=== PATIENT | male | born 1940 | race Caucasian/White ===

== ENCOUNTER 2017-01-31 11:43 | Emergency (ER) | payer MEDICARE, OTHER ==
[2017-01-31 11:44] VITALS: BMI 22.6
[2017-01-31 12:02] VITALS: RESP 18; TEMP 97.8; O2SAT 98
[2017-01-31] MEDS ORDERED: Tobramycin 0.3% OPH OINT OU STA (12:15)
--- NOTE | 2017-01-31 12:21 | ED PDOC ---
Arrival/HPI <Tal Solomon - Last Filed: 01/31/17 13:18> <Darius Toro - Last Filed: 01/31/17 15:15> - General Chief Complaint: Eye Problem Time Seen by Provider: 01/31/17 11:57 - History of Present Illness Narrative History of Present Illness (Text): CC: right eye pain/discharge This patient is a 76yo M w/ a history of Colon Resection and colostomy placement , DM, Urinary incontinence, HLD, and GERD who is presenting to the ED w/ a 2d history of right eye discharge/pain and swelling. The patient states he feels like he has sand in his eyes, with white discharge coming out of his right eye and cannot stop itching it. He states his vision is 100% the same, and has no trouble moving his eyes. He denies fevers/chills, BARRERA, CP, SOB, abdominal pain, N /V/D, or lower extremity pain/swelling. The patient states he is incontinent of urine, which is his baseline, wears a diaper, and feels as though it is painful when he urinates. Of note, the patient performs self colostomy care and most likely did not clean his hands well enough 2 days ago when he was changing and touches his face/eyes. (Tal Solomon) Past Medical History - Provider Review Nursing Documentation Reviewed: Yes - Travel History Have you recently traveled outside [place] w/in the past 3 mons?: No - Infectious Disease Hx of Infectious Diseases: None - Tetanus Immunization Tetanus Immunization: Unknown - Cardiac Hx Hypertension: Yes - Pulmonary Hx Respiratory Disorders: No - Endocrine/Metabolic Hx Diabetes Mellitus Type 2: Yes - Hematological/Oncological Hx Cancer: Yes (colon) - Integumentary Hx Dermatological Disorder: No - Musculoskeletal/Rheumatological Hx Musculoskeletal Disorders: No - Gastrointestinal Hx Bowel Surgery: Yes Hx Colostomy: Yes - Genitourinary/Gynecological Hx Genitourinary Disorders: No - Psychiatric Hx Psychophysiologic Disorder: No Hx Substance Use: No - Past Surgical History Past Surgical History: No Previous - Anesthesia Hx Anesthesia Reactions: No Hx Malignant Hyperthermia: No - Suicidal Assessment Feels Threatened In Home Enviroment: No <Tal Solomon - Last Filed: 01/31/17 13:18> Family/Social History - Physician Review Nursing Documentation Reviewed: Yes Family/Social History: No Known Family HX Smoking Status: Unknown If Ever Smoked Hx Alcohol Use: No Hx Substance Use: No Hx Substance Use Treatment: No <Tal Solomon - Last Filed: 01/31/17 13:18> Allergies/Home Meds <Tal Solomon - Last Filed: 01/31/17 13:18> <ToroDarius tavares Jai - Last Filed: 01/31/17 15:15> Allergies/Adverse Reactions: Allergies No Known Allergies Allergy (Verified 02/25/14 14:43) Home Medications: Home Meds Medication Instructions Recorded Confirmed Clopidogrel [Plavix] 75 mg PO DAILY 06/22/14 12/22/14 Glimepiride [amaRYL] 2 mg PO PRN 06/22/14 12/22/14 Mirabegron [Myrbetriq] 50 mg PO DAILY 06/22/14 12/22/14 Ramipril [Altace] 10 mg PO DAILY 06/22/14 12/22/14 Simvastatin 10 mg PO DAILY 06/22/14 12/22/14 Tolterodine Tartrate [Detrol LA] 4 mg PO DAILY 06/22/14 12/22/14 Review of Systems - Review of Systems Constitutional: absent: Fatigue, Weight Change Eyes: Other (discharge from right eye white/sand like). absent: Vision Changes , Photophobia, Eye Pain ENT: absent: Hearing Changes, Tinnitus Respiratory: absent: SOB, Cough Cardiovascular: absent: Chest Pain, Palpitations Gastrointestinal: absent: Abdominal Pain, Stool Changes Genitourinary Male: absent: Dysuria, Frequency Musculoskeletal: absent: Arthralgias, Back Pain Skin: absent: Rash, Pruritis, Skin Lesions Neurological: absent: Headache, Dizziness Endocrine: absent: Diaphoresis, Polyuria Hemo/Lymphatic: absent: Adenopathy, Easy Bleeding Psychiatric: absent: Anxiety <Tal Solomon - Last Filed: 01/31/17 13:18> Physical Exam Vital Signs Reviewed: Yes Temperature: Afebrile Blood Pressure: Normal Pulse: Regular Respiratory Rate: Normal Appearance: Positive for: Well-Appearing Pain Distress: None Mental Status: Positive for: Alert and Oriented X 3 - Systems Exam Head: Present: Swelling (right eye below orbit, non painful to palpation, eye is red and there is pus/sand like material coming from eye. there is no entrapment, pain on eye movement, or vision loss) Pupils: Present: PERRL Extroacular Muscles: Present: EOMI. No: Entrapment Conjunctiva: Present: Injected. No: Icteric Mouth: Present: Moist Mucous Membranes Pharnyx: No: ERYTHEMA, EXUDATE Neck: Present: Normal Range of Motion. No: Meningeal Signs Respiratory/Chest: Present: Clear to Auscultation, Good Air Exchange. No: Respiratory Distress, Accessory Muscle Use Cardiovascular: Present: Regular Rate and Rhythm. No: Murmurs Abdomen: Present: Normal Bowel Sounds. No: Tenderness, Distention Back: Present: Normal Inspection. No: CVA Tenderness Upper Extremity: Present: Normal Inspection. No: Cyanosis, Edema Lower Extremity: Present: Normal Inspection. No: Edema, CALF TENDERNESS Neurological: Present: GCS=15, CN II-XII Intact, Speech Normal Skin: Present: Warm Psychiatric: Present: Alert, Oriented x 3, Normal Insight <Tal Solomon - Last Filed: 01/31/17 13:18> Vital Signs Temp Pulse Resp BP Pulse Ox 01/31/17 13:20 75 18 130/71 98 01/31/17 12:02 97.8 F 79 18 132/76 98 01/31/17 11:59 97.6 F 70 16 178/75 H 98 Medical Decision Making <Tal Solomon - Last Filed: 01/31/17 13:18> <Darius Toro - Last Filed: 01/31/17 15:15> ED Course and Treatment: Bacterial Conjunctivitis vs Viral Conjunctivitis vs UTI Patient is afebrile, resting comfortably, has no systemic symptoms will give tobramycin eye drops and do UA Stressed importance of proper sterile care when changing colostomy. Dispo and Reassess 01/31/17 12:35 UA positive; will give patient 1g of Ceftriaxone 01/31/17 13:02 no WBC, no bands Anemia 12.2, which is higher than last Hgb of 11.2 pending CMP 01/31/17 13:18 CMP is WNL the patient is stable for d/c as per Dr. Toro The patient will get Tobramycin eye drops for 10days, as well as Vantin for 10d 200mg BID (Tal Solomon) 01/31/17 15:13 Examined the patient myself without septal cellulitis likely very superficial preseptal cellulitis versus blepharitis patient was given by mouth antibiotics as well as topical antibiotics and told to return if worsening symptoms. Nontoxic appearing (Darius Toro) - Lab Interpretations Lab Results: 01/31/17 12:45 01/31/17 12:45 Lab Results 01/31/17 12:45: Sodium 140, Potassium 4.1, Chloride 105, Carbon Dioxide 27, Anion Gap 13, BUN 21, Creatinine 0.8, Est GFR ( Amer) > 60, Est GFR (Non- Af Amer) > 60, Random Glucose 112 H, Calcium 9.2, Total Bilirubin 0.6, AST 23, ALT 33, Alkaline Phosphatase 87, Total Protein 7.0, Albumin 4.2, Globulin 2.9, Albumin/Globulin Ratio 1.5 01/31/17 12:45: WBC 7.5 D, RBC 3.88, Hgb 12.2 L, Hct 36.7 L, MCV 94.6, MCH 31.4 , MCHC 33.2, RDW 13.3, Plt Count 159, MPV 11.7 H, Gran % 73.3 H, Lymph % (Auto) 19.0 L, [place] % (Auto) 6.5 H, Eos % (Auto) 1.1 L, Baso % (Auto) 0.1, Gran # 5.50 , Lymph # 1.4, [place] # 0.5, Eos # 0.1, Baso # 0.01 01/31/17 12:34: Urine Color Yellow, Urine Appearance Clear, Urine pH 6.5, Ur Specific [place] <= 1.005, Urine Protein Trace H, Urine Glucose (UA) Negative, Urine Ketones Negative, Urine Blood Trace-intact H, Urine Nitrate Positive H, Urine Bilirubin Negative, Urine Urobilinogen 0.2, Ur Leukocyte Esterase Moderate H, Urine RBC 2 - 5, Urine WBC 5 - 10, Ur Epithelial Cells 4 - 5, Amorphous Sediment Few, Urine Bacteria Many - Medication Orders Current Medication Orders: Discontinued Medications Ceftriaxone Sodium (Rocephin 1 Gram Ivpb) 1 gm in 100 mls @ 200 mls/hr IVPB STAT STA PRN Reason: Protocol Stop: 01/31/17 13:13 Last Admin: 01/31/17 13:41 Dose: 200 mls/hr eMAR Start Stop Document 01/31/17 13:41 OCS (Rec: 01/31/17 13:41 OCS [facility] [id number]) Intravenous Solution Start Date 01/31/17 Start Time 13:41 Tobramycin Sulfate (Tobrex 0.3% Ophth Oint) 1 appl OU ONCE STA Stop: 01/31/17 12:16 Last Admin: 01/31/17 12:36 Dose: 0.3 % - PA / 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 <Darius Toro - Last Filed: 01/31/17 15:15> Disposition/Present on Arrival - Present on Arrival Any Indicators Present on Arrival: No History of DVT/PE: No History of Uncontrolled Diabetes: No Urinary Catheter: No History of Decub. Ulcer: No History Surgical Site Infection Following: None - Disposition Have Diagnosis and Disposition been Completed?: Yes Disposition Time: 13:22 Patient Plan: Discharge <Tal Solomon - Last Filed: 01/31/17 13:18> <Darius Toro - Last Filed: 01/31/17 15:15> - Disposition Diagnosis: Bacterial conjunctivitis, Urinary tract infection Patient Problems: Current Active Problems Problem Status Onset Bacterial conjunctivitis Acute Urinary tract infection Acute Condition: FAIR Discharge Instructions (ExitCare): Urinary Tract Infection in Men (ED), Conjunctivitis (ED) Additional Instructions: Please make sure to take your Tobramycin eye drops, every 6 hours, for 10 days as well as Vantin, BID for 10 days You were given 1g of Ceftriaxone for a UTI here in the ED which should resolve your symptoms If you develop any trouble with your vision, cannot move your eyes, or cannot open them, please come back to the ED as this can be more serious issue Please feel better. Prescriptions: Cefpodoxime [Vantin] 200 mg PO BID 10 Days #20 tab Dexamethasone/Tobramycin [Tobradex Opht Susp] 25 drop OD Q6H 10 Days #1 bottle Forms: [employer] [place] ([place])
[2017-01-31 12:39] LABS: PH,URINE 6.5 (4.7-8.0); URINE BILIRUBIN NEGATIVE (NEGATIVE); URINE BLOOD TRACE-INTACT (NEGATIVE); URINE GLUCOSE (UA) NEGATIVE (NEGATIVE); URINE KETONE NEGATIVE (NEGATIVE); URINE LEUKOCYTE ESTERASE MODERATE Leu/uL (NEGATIVE); URINE PROTEIN TRACE mg/dL (<30 mg/dL); URINE UROBILINOGEN 0.2 E.U./dL (<1 E.U./dL)
[2017-01-31 12:42] LABS: URINE APPEARANCE CLEAR (CLEAR); URINE COLOR YELLOW (YELLOW)
[2017-01-31] MEDS ORDERED: cefTRIAXone 1 gm 1 GM/100 ML BAG IVPB STA (12:44)
[2017-01-31 12:50] LABS: URINE AMORPHOUS SEDIMENT FEW; URINE BACTERIA MANY (NEG)
[2017-01-31 13:00] LABS: BASO # 0.01 K/mm3 (0.0-2.0); BASO % 0.1 % (0.0-3.0); EOS # 0.1 (0.0-0.7); EOS % 1.1 % (1.5-5.0); GRAN # 5.5 (1.4-6.5); GRAN % 73.3 % (50.0-68.0); HEMATOCRIT 36.7 % (42.0-52.0); LYMPH # 1.4 (1.2-3.4); MEAN CELL VOLUME 94.6 fl (80.0-105.0); MEAN CORPUSCULAR HEMOGLOBIN 31.4 pg (25.0-35.0); MEAN CORPUSCULAR HGB CONC 33.2 g/dl (31.0-37.0); MEAN PLATELET VOLUME 11.7 fl (7.0-11.0); MONO # 0.5 (0.1-0.6); MONO % 6.5 % (1.0-6.0); RED CELL DISTRIBUTION WIDTH 13.3 % (11.5-14.5); WHITE BLOOD COUNT 7.5 10^3/ul (4.5-11.0)
[2017-01-31 13:12] LABS: ALB/GLOB RATIO 1.5 (1.1-1.8); ALKALINE PHOSPHATASE 87 U/L (38-126); ALT/SGPT 33 U/L (7-56); AST/SGOT 23 U/L (17-59); BILIRUBIN,TOTAL 0.6 mg/dL (0.2-1.3); BLOOD UREA NITROGEN 21 mg/dL (7-21); CALCIUM 9.2 mg/dL (8.4-10.5); CARBON DIOXIDE 27 mmol/L (21-33); CHLORIDE 105 mmol/L (98-107); GFR AFRICAN-AMERICAN > 60; GLUCOSE,RANDOM 112 mg/dL (70-110); POTASSIUM 4.1 mmol/L (3.6-5.0); SODIUM 140 mmol/L (132-148)
[2017-01-31 13:58] VITALS: BP 130/71; PULSE 75
== END 2017-01-31 14:30 | disposition home or self-care (01) ==
LOC: ED 11:43
DX: N39.0 Urinary tract infection, site not specified (principal); H10.89 Other conjunctivitis; E11.9 Type 2 diabetes mellitus without complications; I10 Essential (primary) hypertension; E78.5 Hyperlipidemia, unspecified; Z93.3 Colostomy status
CPT/HCPCS: 80053; 81001; 85025; 87040; 87086; 96374; 99283; J0696

== ENCOUNTER 2018-07-09 09:53 | Outpatient (CLI) | payer MEDICARE, OTHER | END 2018-07-09 09:54 | disposition home or self-care (01) | LOC: LAB 09:53 ==

== ENCOUNTER 2018-08-03 08:27 | Outpatient (CLI) | payer MEDICARE, OTHER | END 2018-08-03 08:28 | disposition home or self-care (01) | LOC: CARDIO 08:27 | DX: Z01.818 Encounter for other preprocedural examination (principal); E11.9 Type 2 diabetes mellitus without complications; R07.89 Other chest pain ==